=== PATIENT | female | born 1950 ===

== ENCOUNTER 2017-06-30 08:37 | Day surgery (SDC) | payer MEDICARE, OTHER ==
[2017-06-29 13:08] VITALS: BMI 25.8
[2017-06-30] MEDS ORDERED: Propofol 10 mg/ml Inj (20 ML) ONE (10:26)
--- NOTE | 2017-06-30 10:26 | CP.SDSHP ---
Same Day Surgery H & P - History Proposed Procedure: EGD Pre-Op Diagnosis: SEE NOTES - Previous Medical/Surgical History Cardiac: Hypertension Misc: Other Pain: 4.Moderate Pain - Allergies Allergies: Allergies No Known Allergies Allergy (Verified 06/30/17 09:30) - Physical Exam General Appearance: N Vital Signs: Vital Signs 06/30/17 09:15 Temperature 97.5 F L Pulse Rate 68 Respiratory 19 Rate Blood Pressure 115/60 O2 Sat by Pulse 98 Oximetry Mental Status: Alert & Oriented x3 Neuro: WNL Heart: Other Lungs: WNL GI: Other - {Optional Preform as Required} Breast: WNL Abdomen: Other Rectal: Other Integument: WNL : WNL Ortho: WNL ENT: WNL - Impression Pt. Evaluated Today:Candidate for Anesthesia & Procedure: Yes - Date & Time Time: 10:26 Short Stay Discharge - Short Stay Discharge Admitting Diagnosis/Reason for Visit: DYSPEPSIA Disposition: HOME/ ROUTINE
[2017-06-30] MEDS ORDERED: Lactated Ringer's 1,000 ML IV ONE (10:35)
[2017-06-30] MEDS ORDERED: Belladonna-Phenobarbital PO ONE (10:50)
[2017-06-30] MEDS ORDERED: Sucralfate 1 gm/10 ml Oral Susp UD PO ONE (10:55)
[2017-06-30 11:06] VITALS: TEMP 96.8
[2017-06-30 11:34] VITALS: O2SAT 100
[2017-06-30 12:06] VITALS: BP 125/67; PULSE 65; RESP 18
== END 2017-06-30 12:00 | disposition home or self-care (01) ==
LOC: C.ENDO 08:37
PROVIDERS: ATTEND Specialist
DX: K21.0 Gastro-esophageal reflux disease with esophagitis (principal); K30 Functional dyspepsia; K29.70 Gastritis, unspecified, without bleeding; K44.9 Diaphragmatic hernia without obstruction or gangrene; I10 Essential (primary) hypertension
CPT/HCPCS: 43239; 88305; 88342; J2001; J2704; J7120

== ENCOUNTER 2017-07-07 06:51 | Day surgery (SDC) | payer MEDICARE, OTHER ==
[2017-06-29 13:08] VITALS: BMI 25.8
[2017-07-07] MEDS ORDERED: Propofol 10 mg/ml Inj (20 ML) ONE ×2 (08:39→08:52)
[2017-07-07] MEDS ORDERED: Lidocaine Hydrochloride 5 ML INJ ONE (08:39)
--- NOTE | 2017-07-07 08:44 | CP.SDSHP ---
Same Day Surgery H & P - History Proposed Procedure: COLONSCOPY Pre-Op Diagnosis: SEE NOTES - Previous Medical/Surgical History Cardiac: Hypertension Misc: Other Pain: 4.Moderate Pain - Allergies Allergies: Allergies No Known Allergies Allergy (Verified 07/07/17 07:28) - Physical Exam General Appearance: N Vital Signs: Vital Signs 07/07/17 07:20 Temperature 98.4 F Pulse Rate 68 Respiratory 19 Rate Blood Pressure 138/73 O2 Sat by Pulse 97 Oximetry Mental Status: Alert & Oriented x3 Neuro: WNL Heart: Other Lungs: WNL GI: WNL - {Optional Preform as Required} Breast: WNL Abdomen: Other Rectal: Other Integument: WNL : WNL Ortho: WNL ENT: WNL - Impression Pt. Evaluated Today:Candidate for Anesthesia & Procedure: Yes - Date & Time Time: 08:44 Short Stay Discharge - Short Stay Discharge Admitting Diagnosis/Reason for Visit: RECTAL BLEEDING Disposition: HOME/ ROUTINE
[2017-07-07] MEDS ORDERED: Lidocaine 2% Jelly (5 ml) TOP ONE (08:47)
[2017-07-07] MEDS ORDERED: Glucagon Recombinant 1 mg Inj ONE (08:56)
[2017-07-07 09:22] VITALS: TEMP 97.5
[2017-07-07] MEDS ORDERED: Belladonna-Phenobarbital PO ONE (09:30)
[2017-07-07 09:33] VITALS: O2SAT 100
[2017-07-07 10:24] VITALS: BP 126/75; PULSE 66; RESP 12
== END 2017-07-07 10:25 | disposition home or self-care (01) ==
LOC: C.ENDO 06:51
PROVIDERS: ATTEND Specialist
DX: K62.5 Hemorrhage of anus and rectum (principal); K64.8 Other hemorrhoids; K57.30 Diverticulosis of large intestine without perforation or abscess without bleeding
CPT/HCPCS: 45380; 82948; 88305; J1610; J2704